=== PATIENT | female | born 1980 | race Caucasian/White ===

== ENCOUNTER 2018-12-11 05:33 | Day surgery (SDC) | payer OTHER ==
[~2018-12-11 05:33] MED LIST: Buffered Lidocaine 1% SYRIN* 1 ML/SYRINGE INTRADERM ONE
[2018-12-11] MEDS ORDERED: Buffered Lidocaine 1% SYRIN* 1 ML/SYRINGE INTRADERM ONE (05:55)
[2018-12-11] MEDS ORDERED: Lactated Ringers 1000 ML Bag* 1,000 ML IV SCH (06:00)
[2018-12-11] MEDS ORDERED: Silver Nitrate/Potassium Nitr* 1 EA STICK ONE (06:54)
[2018-12-11] MEDS ORDERED: Propofol* 10 MG/ML 20 ML BTL ONE (07:32)
[2018-12-11] MEDS ORDERED: fentaNYL* 50 MCG/ML 2 ML VIAL (100 MCG VIAL) ONE (07:32)
[2018-12-11] MEDS ORDERED: Lidocaine 2% PF * 5 ML VIAL ONE (07:32)
[2018-12-11] MEDS ORDERED: Naloxone* 0.4 MG/ML 1 ML VIAL IV PRN (08:03)
[2018-12-11] MEDS ORDERED: Ondansetron INJ* 2 MG/ML VIAL IV PRN (08:03)
[2018-12-11] MEDS ORDERED: Ketorolac INJ* 30 MG/ML 1 ML VIAL IV PRN (08:03)
[2018-12-11] MEDS ORDERED: fentaNYL* 50 MCG/ML 2 ML VIAL (100 MCG VIAL) IV PRN (08:03)
[2018-12-11] MEDS ORDERED: Ketorolac INJ* 30 MG/ML 1 ML VIAL ONE (08:29)
[2018-12-11 09:07] VITALS: BP 122/81
--- NOTE | 2018-12-11 10:34 | OP ---
OPERATIVE REPORT: DATE OF OPERATION: 12/11/18 DATE OF : 76 SURGEON: Cheryl Briseno MD ANESTHESIA: General endotracheal. PRE-OP DIAGNOSES: 1. Abnormal uterine bleeding. 2. Endometrial polyp. POST-OP DIAGNOSES: 1. Abnormal uterine bleeding. 2. Endometrial polyp. 3. Unicornuate uterus. OPERATIVE PROCEDURE: D and C, hysteroscopy, polypectomy. ESTIMATED BLOOD LOSS: Minimal. SPECIMEN: Endometrial polyp. FLUIDS: Crystalloid. DRAINS: 250 mL of urine drained prior to the procedure. FINDINGS: There was a large polyp in the lower uterine segment and the uterus was found to be unicor nuate with what I believe was the left ostia communicating. DESCRIPTION OF PROCEDURE: After informed consent was signed, the patient was taken to the operating room where she was given general anesthesia that was found to be adequate. She was prepped and drape d in the dorsal lithotomy position in the [facility]. A time-out was performed. Her bladder was drained of urine, and 2 speculums were placed into the vagina to expose the cervix. The anterior li p of the cervix was grasped with a single-toothed tenaculum. The uterus was sounded at 9 cm and the cervix was gently dilated until the MyoSure hysteroscope could be inserted into the uterine cavity. On inspection of the uterine cavity, the polyp was clearly seen in the lower uterine segment, and wit h further inspection, only 1 ostia was noted slightly to the left of midline and the cavity was thin and unicornuate. The MyoSure LITE was then assembled and inserted through the device and a polyp was easily removed with the MyoSure. The device was removed. The tenaculum was removed with good hemos tasis with silver nitrate. The speculum was removed from the vagina and the patient was taken to the recovery room in stable condition. [id number]/[facility] #: [id number]
== END 2018-12-11 09:14 | disposition home or self-care (01) ==
LOC: OR 05:33
PROVIDERS: ATTEND Obstetrics & Gynecology
DX: N84.1 Polyp of cervix uteri (principal); N93.8 Other specified abnormal uterine and vaginal bleeding
CPT/HCPCS: 81025; 88305; A9270-GY; J1885; J2704; J3010